=== PATIENT | male | born 1970 | race Two or more races ===

== ENCOUNTER 2017-10-22 00:14 | Emergency (ER) | payer OTHER ==
[~2017-10-22] VITALS: Ht 175.3 cm; Wt 86.2 kg
[2017-10-22] MEDS ORDERED: Lidocaine 1% Plain 30 ml INJ ONE (00:30)
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
[2017-10-22 02:44] VITALS: BP 160/82
--- NOTE | 2017-10-22 08:41 | Diagnostic Imaging Report ---
Indication: Reason For Exam: PAIN Technique: Continuous helical CT scanning of the head was performed without intravenous contrast material. Axial and coronal 5 mm sections were generated. Radiation dose was minimized using automated exposure control Dose: Total Dose Length Product - DLP 1382.[address] Dose Index - CTDIvol(s) 70.38 mGy. Comparison: none Findings: The ventricular system is normal in size and configuration. There is no shift of midline structures. No abnormal extra-axial fluid collections are noted. There is no evidence of intracerebral bleeding. No other abnormal high or low density areas are noted within the brain. There is some midline nasal and supranasal soft tissue swelling. There is possibly a fracture of the tip of the nasal bone, and completely included. There is deformity of the medial right orbital wall, presumably chronic, may be developmental or from old trauma. There is bilateral ethmoid and maxillary sinus mucosal disease Impression: Negative for acute intracranial bleed or mass effect Evidence of nasal bony and soft tissue trauma This agrees with the preliminary interpretation provided overnight by [facility]. The CT scanner at [facility] is accredited by the [employer] and the scans are performed using protocols designed to limit radiation exposure to as low as reasonably achievable to attain images of sufficient resolution adequate for diagnostic evaluation.
== END 2017-10-22 02:48 | disposition home or self-care (01) ==
LOC: EDBD 00:14 → EMR 00:18
DX: S01.81XA Laceration without foreign body of other part of head, initial encounter (principal); S09.90XA Unspecified injury of head, initial encounter; F10.10 Alcohol abuse, uncomplicated; Z91.030 Bee allergy status; Y04.2XXA Assault by strike against or bumped into by another person, initial encounter; Y92.512 Supermarket, store or market as the place of occurrence of the external cause
CPT/HCPCS: 12002; 70450; 99284; J2001

== ENCOUNTER 2019-06-06 19:05 | Emergency (ER) | payer SELFPAY ==
[~2019-06-06] VITALS: Ht 177.8 cm; Wt 93.0 kg
[2019-06-06 19:45] VITALS: BP 126/82
[2019-06-06] MEDS ORDERED: Cephalexin 500mg cap ORAL ONE (20:00)
[2019-06-06] MEDS ORDERED: Bactrim-DS 1 tab ORAL ONE (20:00)
[2019-06-06] MEDS ORDERED: Lidocaine 1% 10mg/ml/Epi 0.005mg/ml 30ml vial INJ ONE (20:00)
[2019-06-06] MEDS ORDERED: oxyCODONE HCL/Acetaminophen 5/325mg ORAL ONE (20:00)
[2019-06-06] MEDS ORDERED: BACTRIM DS TAB1 EAC1 ORAL (20:35)
[2019-06-06] MEDS ORDERED: CEPHALEXIN500 M1 ORAL (20:35)
--- NOTE | 2019-06-06 20:36 | Emergency Room Report ---
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 Allergies: Coded Allergies: BEE VENOM PROTEIN (HONEY BEE) (Verified Allergy, Unknown, 10/22/17) Patient History Past Medical History: see triage record Reviewed Nursing Documentation: PMH: Agreed; PSxH: Agreed Nursing Documentation-PMH Past Medical History: No History, Except For Review of Systems All Other Systems: negative except mentioned in HPI Physical Exam Vital Signs Date Time Temp Pulse Resp B/P (MAP) Pulse Ox O2 Delivery O2 Flow Rate FiO2 06/06/19 19:14 98.4 84 18 126/82 (97) 97 Room Air Sp02 EP Interpretation: reviewed, normal General Appearance: well appearing, no apparent distress, alert Head: normocephalic, atraumatic Eyes: bilateral eye PERRL, bilateral eye EOMI ENT: uvula midline, moist mucus membranes Neck: supple, thyroid normal, supple/symm/no masses Respiratory: no respiratory distress, no retraction, no accessory muscle use Gastrointestinal: no guarding, no rebound Musculoskeletal: normal inspection Neurologic: alert, oriented x3 Psychiatric: mood/affect normal Skin: warm/dry, other - Right armpit: Fluctuance felt 2 x 2 cm right armpit abscess, with surrounding cellulitis Procedures Incision and Drainage Incision and Drainage : Consent: Verbal Site: right axilla Blade Size: 11 I & D Procedure: betadine prep, sterile drapes applied, sterile dressing applied, gauze wick placed Wound Location: axilla Wound's Depth, Shape: superficial Wound Length (cm): 2 Irrigated w/ Saline (ccs): 100 Anesthesia: Lidocaine w/ Epi Volume Anesthetic (ccs): 10 Patient Tolerated: Well Complications: None Medical Decision Making Diagnostic Impression: Primary Impression: Abscess ER Course 48-year-old male presents with right axilla abscess, status post incision and drainage will trial antibiotics, wound check in 72 hours to remove packing Last Vital Signs Date Time Temp Pulse Resp B/P (MAP) Pulse Ox O2 Delivery O2 Flow Rate FiO2 06/06/19 19:14 98.4 84 18 126/82 (77) 97 Room Air Disposition: HOME, SELF-CARE Condition: Stable Scripts Trimethoprim/Sulfamethoxazole 160/800* (BACTRIM DS TABLET*) 1 Each Tablet 1 TAB ORAL Q12H, #20 TAB 0 Refills Prov: Gerhard Reinoso MD 06/06/19 Cephalexin* (KEFLEX*) 500 Mg Tablet 500 MG ORAL EVERY 6 HOURS, #40 CAP Prov: Gerhard Reinoso MD 06/06/19 Referrals: [facility] Patient Instructions: Abscess Additional Instructions: The patient was provided with discharge instructions, notified to follow-up with a primary care doctor and or specialist in the next 24-48 hours, and to return to the ED if they have worsening of their symptoms. Please note that this report is being documented using DRAGON technology. This can lead to erroneous entry secondary to incorrect interpretation by the dictating instrument. PLEASE RETURN 06/09/2019 FOR WOUND CHECK AND PACKING REMOVAL Gerhard Reinoso MD Jun 06, 2019 20:36
[2019-06-06 20:44] VITALS: BP 126/82
== END 2019-06-06 20:45 | disposition home or self-care (01) ==
LOC: EMR 19:40
DX: L02.411 Cutaneous abscess of right axilla (principal)
CPT/HCPCS: 99283

== ENCOUNTER 2019-06-08 13:34 | Emergency (ER) | payer SELFPAY ==
[~2019-06-08] VITALS: Ht 177.8 cm; Wt 93.0 kg
[~2019-06-08 13:34] MED LIST: BACTRIM DS TAB1 EAC1 ORAL; CEPHALEXIN500 M1 ORAL
[2019-06-08 14:08] VITALS: BP 111/82
--- NOTE | 2019-06-08 14:30 | Emergency Room Report ---
History of Present Illness General Chief Complaint: Skin Rash/Abscess Source: Patient Present Illness HPI 48-year-old male who presents to emergency for wound check. Patient states he was in the emergency room for axillary abscess that was drained and a wound packing was placed. Patient was also prescribed antibiotics which she has been taking as prescribed. Patient denies any chills but noted some subjective fevers. He did not take his temperature. Allergies: Coded Allergies: BEE VENOM PROTEIN (HONEY BEE) (Verified Allergy, Unknown, 10/22/17) Patient History Past Surgical History: none Pertinent Family History: none Nursing Documentation-[facility] Past Medical History: No History, Except For Review of Systems Constitutional: Reports: fever; Denies: chills Respiratory: Denies: cough, shortness of breath Cardiovascular: Denies: chest pain, palpitations Gastrointestinal: Denies: abdominal pain, diarrhea Musculoskeletal: Denies: back pain, joint pain Skin: Reports: other - Wound with pus drainage; Denies: rash Neurological: Denies: headache, paresthesia Physical Exam Vital Signs Date Time Temp Pulse Resp B/P (MAP) Pulse Ox O2 Delivery O2 Flow Rate FiO2 06/08/19 14:08 99.0 67 18 111/82 (92) 99 Room Air Sp02 EP Interpretation: reviewed, normal General Appearance: no apparent distress, alert, GCS 15, non-toxic Head: normocephalic, atraumatic ENT: hearing grossly normal, moist mucus membranes Neck: full range of motion, supple/symm/no masses Respiratory: chest non-tender, lungs clear, normal breath sounds, speaking full sentences Cardiovascular #1: regular rate, rhythm, no edema Cardiovascular #2: 2+ radial (R), 2+ radial (L) Skin: warm/dry, other - 5 cm of cellulitis over right superior anterior axilla with two 1 cm incisions and drain noted. Mild tenderness. Minimal drainage of pus with palpation, no loculations noted when probed Medical Decision Making Diagnostic Impression: Primary Impression: Wound check, abscess ER Course 48-year-old male with history of axillary abscess status post 2 days of insisted and drainage with wound packing. Came to emergency room for wound check. Differential includes cellulitis, worsening infection, reaccumulation of abscess , well-healing wound Patient's exam were consistent with well-healing wound given mild surrounding erythema and patient self reported improvement of symptoms. Wound packing removed. Patient tolerated procedure well. Patient still has some surrounding erythema. Patient was recommended to continue clean with light soap and water and to follow-up in 2 days for repeat wound check. Patient is to continue prescribed antibiotics Last Vital Signs Date Time Temp Pulse Resp B/P (MAP) Pulse Ox O2 Delivery O2 Flow Rate FiO2 06/08/19 14:08 99.0 67 18 111/82 (92) 99 Room Air Disposition: HOME, SELF-CARE Condition: Stable Patient Instructions: Abscess, Incision and Drainage, Care After Additional Instructions: Return to emergency room in 2 days for wound check. Continue antibiotics as prescribed. Come immediately to emergency room have any worsening symptoms, fevers, increased drainage from wound. Murphy Irvin M.D. Jun 08, 2019 14:30
--- NOTE | 2019-06-08 14:34 | NUR ---
ED Nurse Note: Pt came in from home due to [place], came in the ER a couple days ago for the same reason. Today came back for check-up. Dr. Sandy in room, took out packing. Pt tolerated well. Redness noted around wound. NO active bleeding. Pain 8/10 at this time. AOx4, vital signs stable. Will cont to monitor.
[2019-06-08 15:09] VITALS: BP 111/82
--- NOTE | 2019-06-08 15:10 | NUR ---
ER DISCHARGE NOTE: Patient is cleared to be discharged per DIVINA HOANG , pt is aox4, on room air, with stable vital signs. pt was given dc instructions, pt was able to verbalize understanding, pt id band removed without complications. pt is able to ambulate with steady gait. pt took all belongings.
--- NOTE | 2019-06-08 15:10 | NUR ---
ED Nurse Note: right under armpit picture taken.
== END 2019-06-08 15:08 | disposition home or self-care (01) ==
LOC: EMR 15:04
DX: Z48.00 Encounter for change or removal of nonsurgical wound dressing (principal); Z91.030 Bee allergy status
CPT/HCPCS: 99281

== ENCOUNTER 2019-06-10 16:13 | Emergency (ER) | payer SELFPAY ==
[~2019-06-10] VITALS: Ht 177.8 cm; Wt 92.1 kg
[2019-06-10 16:24] VITALS: BP 111/77
--- NOTE | 2019-06-10 16:37 | Emergency Room Report ---
History of Present Illness General Chief Complaint: Wound Recheck/Suture Removal Source: Medical Record Present Illness HPI 48-year-old male with no significant past medical history here requesting wound check on his drained abscess from right axilla. Patient is compliant with taking antibiotic, denies any fever and chills, pus drainage. No bandage or packing is noted on the affected side. No signs of infection noted. Patient complains of pruritus at the site of the Tegaderm and reports that he took it off. Denies any anaphylaxis, fever chills, chest pain, shortness of breath, palpitation, no other associated symptoms. Denies any new injury. Allergies: Coded Allergies: BEE VENOM PROTEIN (HONEY BEE) (Verified Allergy, Unknown, 10/22/17) Patient History Past Medical History: see triage record Past Surgical History: unable to obtain Pertinent Family History: none Immunizations: UTD Reviewed Nursing Documentation: PMH: Agreed; PSxH: Agreed Nursing Documentation-PMH Past Medical History: No History, Except For Review of Systems All Other Systems: negative except mentioned in HPI Physical Exam Vital Signs Date Time Temp Pulse Resp B/P (MAP) Pulse Ox O2 Delivery O2 Flow Rate FiO2 06/10/19 16:24 97.5 74 18 111/77 97 Room Air Sp02 EP Interpretation: reviewed, normal General Appearance: no apparent distress, alert, GCS 15, non-toxic Head: normocephalic, atraumatic Eyes: bilateral eye normal inspection, bilateral eye PERRL ENT: hearing grossly normal, normal pharynx, no angioedema, normal voice Neck: full range of motion, supple, supple/symm/no masses Respiratory: chest non-tender, lungs clear, normal breath sounds, no rhonchi, no wheezing, speaking full sentences Cardiovascular #1: regular rate, rhythm, no edema, no murmur Gastrointestinal: normal bowel sounds, non tender, soft, non-distended, no guarding, no rebound Rectal: deferred Musculoskeletal: back normal, decreased range of motion, normal range of motion , digits/nails normal Neurologic: alert, motor strength/tone normal, oriented x3, sensory intact, responsive, speech normal Psychiatric: judgement/insight normal, memory normal, mood/affect normal, no suicidal/homicidal ideation Skin: rash - contact dermatitis right axilla, other - drained healing abscess right axilla. Lymphatic: no adenopathy Medical Decision Making CONSTANZA Attestation All diagnoses and treatment plans were reviewed and discussed with my supervising physician Dr. Vigil Diagnostic Impression: Primary Impression: Encounter for wound re-check Additional Impression: Contact dermatitis ER Course 48-year-old male with no significant past medical history here requesting wound check on his drained abscess from right axilla. Patient is compliant with taking antibiotic, denies any fever and chills, pus drainage. No bandage or packing is noted on the affected side. No signs of infection noted. Patient complains of pruritus at the site of the Tegaderm and reports that he took it off. Denies any anaphylaxis, fever chills, chest pain, shortness of breath, palpitation, no other associated symptoms. Denies any new injury. Ddx considered but are not limited to: Eczema, scabies, lice, Vital signs: are WNL, pt. is afebrile H&PE are most consistent with: Contact dermatitis, encounter for wound recheck ORDERS: Triamcinolone ED INTERVENTIONS: Wound clean and dressed DISCHARGE: At this time pt. is stable for d/c to home. Will provide printed patient care instructions, and any necessary prescriptions. Care plan and follow up instructions have been discussed with the patient prior to discharge. Follow-up with your primary care provider, if worsening symptoms return to the emergency room Last Vital Signs Date Time Temp Pulse Resp B/P (MAP) Pulse Ox O2 Delivery O2 Flow Rate FiO2 06/10/19 16:24 97.5 74 18 111/77 (88) 97 Room Air Disposition: HOME, SELF-CARE Condition: Stable Scripts Triamcinolone Acetonide (Triamcinolone Acetonide 0.5% Cream*) 15 Gm Cream..g. 2 GM TP BID, #15 GM Prov: Nathan Vasquez 06/10/19 Patient Instructions: Contact Dermatitis, [id number], Wound Check Nathan Vasquez Jun 10, 2019 16:37
[2019-06-10] MEDS ORDERED: TRIAMCINOLONE A15 G1 TP (16:38)
[2019-06-10 17:17] VITALS: BP 121/70
== END 2019-06-10 17:30 | disposition home or self-care (01) ==
LOC: EMR 16:50
DX: L02.411 Cutaneous abscess of right axilla (principal); L25.9 Unspecified contact dermatitis, unspecified cause
CPT/HCPCS: 99282

== ENCOUNTER 2019-09-12 19:26 | Emergency (ER) | payer MEDICAID, OTHER ==
[~2019-09-12] VITALS: Ht 177.8 cm; Wt 93.0 kg
[~2019-09-12 19:26] MED LIST changes: +TRIAMCINOLONE A15 G1 TP
--- NOTE | 2019-09-12 19:45 | NUR ---
ER Nurse Note: Pt walked in c/o redness, pain on bilateral axillary. Pt stated unk cause of rash, stated 6/10 burning and itchiness pain. Pt also stated there are bumps on bilateral axillary that stated 2/20
[2019-09-12 19:50] VITALS: BP 125/77
[2019-09-12] MEDS ORDERED: NYSTATIN15 G2 TP (19:59)
[2019-09-12 20:00] VITALS: BP 125/77
--- NOTE | 2019-09-12 20:00 | Emergency Room Report ---
History of Present Illness General Chief Complaint: Skin Rash/Abscess Source: Patient Present Illness HPI Patient presents with complaints of discomfort to both axilla Patient reports that he feels some increased itching and irritation also feels masses and swelling in the axilla Denies any fevers or chills denies any chest pain Denies any vomiting or diarrhea Patient reports that he has had multiple flareups in this area in the past Allergies: Coded Allergies: BEE VENOM PROTEIN (HONEY BEE) (Verified Allergy, Unknown, 10/22/17) Patient History Past Medical History: see triage record Reviewed Nursing Documentation: PMH: Agreed; PSxH: Agreed Nursing Documentation-PMH Past Medical History: No History, Except For Review of Systems All Other Systems: negative except mentioned in HPI Physical Exam Vital Signs Date Time Temp Pulse Resp B/P (MAP) Pulse Ox O2 Delivery O2 Flow Rate FiO2 09/12/19 19:42 98.1 75 20 125/77 (93) 99 Room Air Sp02 EP Interpretation: reviewed, normal General Appearance: well appearing, no apparent distress Head: normocephalic, atraumatic Eyes: bilateral eye PERRL, bilateral eye EOMI ENT: hearing grossly normal, normal pharynx, TMs + canals normal, uvula midline Neck: supple Respiratory: lungs clear, no respiratory distress, no retraction Cardiovascular #1: regular rate, rhythm Gastrointestinal: non tender, soft Genitourinary: no CVA tenderness Musculoskeletal: normal inspection Neurologic: alert, oriented x3 Psychiatric: normal inspection Skin: other - Evidence of chronic superlative hidradenitis bilateral axilla. No obvious erythema or fluctuance at the site. There is mild irritation from itching peripherally to this Lymphatic: no adenopathy Medical Decision Making Diagnostic Impression: Primary Impression: hydradenitis ER Course Patient's exam is consistent with chronic separative hidradenitis There are no active signs of abscess or infectious process at this time Patient appears to have some irritation in the periphery and is provided powder medication for this It was discussed the requirement for close outpatient follow-up specialty referral Last Vital Signs Date Time Temp Pulse Resp B/P (MAP) Pulse Ox O2 Delivery O2 Flow Rate FiO2 09/12/19 19:42 98.1 75 20 125/77 (93) 99 Room Air Status: unchanged Disposition: HOME, SELF-CARE Condition: Stable Scripts Nystatin (NYSTATIN) 15 Gm Powder 1 GM TP BID for 7 Days, GM Prov: Javan Figueroa DO 09/12/19 Referrals: Cristina Gotti MD Patient Instructions: Rash, [id number] Additional Instructions: you have a condition called superative hydradenitis. This is a chronic condition that affects your axilla. Please follow-up with your primary physician for further specialty referral Javan Figueroa DO Sep 12, 2019 20:00
--- NOTE | 2019-09-12 20:00 | NUR ---
ED Nurse Note: All orders completed per ER MD orders. Pt cleared by health care Provider for discharge. DC instructions/prescription was given and explained to pt and verbalized understanding of teachings. Instructed pt to follow up with primary care physcian within one week. All medical deviecs such as ID band removed. Pt is AAO x4, ambulatory and left with all personal belongings.
== END 2019-09-12 20:00 | disposition home or self-care (01) ==
LOC: EMR 19:28
DX: L73.2 Hidradenitis suppurativa (principal); Z91.030 Bee allergy status
CPT/HCPCS: 99282

== ENCOUNTER 2020-01-16 20:48 | Emergency (ER) | payer OTHER ==
[~2020-01-16] VITALS: Ht 175.3 cm; Wt 95.3 kg
[~2020-01-16 20:48] MED LIST changes: +NYSTATIN15 G2 TP
[2020-01-16 21:00] VITALS: BP 121/86
--- NOTE | 2020-01-16 21:00 | NUR ---
ED Nurse Note: Patient walked into the ED with c/o SOB and chest pain since wednesday morning. Pain was described as pressure and of 8/10. Patient is AAOx4 and ambulatory. Denies and SOB/. Placed on monitor bed
[2020-01-16] MEDS ORDERED: Ketorolac 30mg Inj IV ONE (21:15)
--- NOTE | 2020-01-16 21:43 | Emergency Room Report ---
History of Present Illness General Chief Complaint: Chest Pain Source: Patient Present Illness HPI Patient presents with chest pain. They pain started at rest on Wednesday. It is been fairly constant and not increasing with exertion. He has been out and about with people. He is concerned about the possibility of diane COVID- 19. He denies fevers or chills, dyspnea, dyspnea on exertion, productive cough , sore throat, nausea, vomiting, diarrhea. The patient denies edema or calf pain. He has never been evaluated for chest pain in the past. He does describe it as someone sitting on his chest. He rates the pain 8/10. It is been constant throughout this time period. He is anxious about the possibility of COVID-19. Risk factors for cardiac disease: No family history, diabetes, hypertension, high cholesterol or smoking. The patient does drink alcohol and was drinking prior to the onset of the chest pain. No palpitations, diarrhea, dysuria, abdominal pain, rashes, visual changes, dizziness, headache. The patient does not exhibit COVID-19 symptoms. He has been exposed to other people however. 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 Reviewed Nursing Documentation: PMH: Agreed; PSxH: Agreed Nursing Documentation-PM Past Medical History: No Stated History Review of Systems All Other Systems: negative except mentioned in HPI Physical Exam Vital Signs Date Time Temp Pulse Resp B/P (MAP) Pulse Ox O2 Delivery O2 Flow Rate FiO2 01/16/20 20:52 97.9 82 18 121/86 (98) 97 Room Air Sp02 EP Interpretation: reviewed, normal General Appearance: well appearing, no apparent distress, GCS 15 Head: normocephalic Eyes: bilateral eye normal inspection, bilateral eye PERRL, bilateral eye EOMI ENT: moist mucus membranes Neck: full range of motion, supple Respiratory: chest non-tender, lungs clear, normal breath sounds Cardiovascular #1: regular rate, rhythm, no edema Cardiovascular #2: 2+ radial (R) Gastrointestinal: normal inspection, normal bowel sounds, non tender, no mass, non-distended Genitourinary: no CVA tenderness Musculoskeletal: back normal, normal range of motion, no calf tenderness, gait/ station normal Neurologic: alert, oriented x3, normal inspection Psychiatric: mood/affect normal - Slightly anxious and depressed affect Skin: no rash, warm/dry Medical Decision Making Diagnostic Impression: Primary Impression: Chest pain Qualified Codes: R07.9 - Chest pain, unspecified ER Course The patient presents with several days of chest pain with that atypical history aside from saying and it feels like "someone is sitting on his chest". Differential includes unstable angina, acute myocardial infarction, anxiety, GERD, chest wall pain, COVID-19 amongst others. Evaluation with EKG, chest x- ray and labs. At the onset risk factors are nil. However the patient needs to be placed on a parachute inspector. The patient will be treated with aspirin, Pepcid and Toradol. EKG normal. Chest x-ray clear. Labs remarkable for negative troponin. Heart score 0. Patient's pain resolved with treatment. Discussed low risk and patient wants to go home. Discussed the need for follow- up with his own doctor. Also discussed possible etiologies of the chest pain. Also suggested that the patient have outpatient COVID-19 testing for his own reassurance. No medical emergency at this time, low cardiac risk. Patient stable for outpatient observation and treatment. Laboratory Tests Test 01/16/20 21:26 White Blood Count 8.6 K/UL (4.8-10.8) Red Blood Count 4.96 M/UL (4.70-6.10) Hemoglobin 15.5 G/DL (14.2-18.0) Hematocrit 46.0 % (42.0-52.0) Mean Corpuscular Volume 93 FL (80-99) Mean Corpuscular Hemoglobin 31.3 PG (27.0-31.0) H Mean Corpuscular Hemoglobin Concent 33.7 G/DL (32.0-36.0) Red Cell Distribution Width 11.6 % (11.6-14.8) Platelet Count 292 K/UL (150-450) Mean Platelet Volume 6.8 FL (6.5-10.1) Neutrophils (%) (Auto) 59.2 % (45.0-75.0) Lymphocytes (%) (Auto) 26.6 % (20.0-45.0) Monocytes (%) (Auto) 9.6 % (1.0-10.0) Eosinophils (%) (Auto) 3.3 % (0.0-3.0) H Basophils (%) (Auto) 1.3 % (0.0-2.0) Prothrombin Time 11.7 SEC (9.30-11.50) H Prothrombin Time INR 1.1 (0.9-1.1) Activated Partial Thromboplast Time 30 SEC (23-33) Sodium Level 144 MMOL/L (136-145) Potassium Level 3.8 MMOL/L (3.5-5.1) Chloride Level 105 MMOL/L (98-107) Carbon Dioxide Level 29 MMOL/L (21-32) Anion Gap 10 mmol/L (5-15) Blood Urea Nitrogen 12 mg/dL (7-18) Creatinine 1.0 MG/DL (0.55-1.30) Estimated Glomerular Filtration Rate > 60 mL/min (>60) Glucose Level 100 MG/DL (74-106) Calcium Level 8.8 MG/DL (8.5-10.1) Total Bilirubin 0.3 MG/DL (0.2-1.0) Aspartate Amino Transferase (AST) 25 U/L (15-37) Alanine Aminotransferase (ALT) 55 U/L (12-78) Alkaline Phosphatase 103 U/L (46-116) Total Creatine Kinase 105 U/L (26-308) Troponin I 0.000 ng/mL (0.000-0.056) Pro-B-Type Natriuretic Peptide 29 pg/mL (0-125) Total Protein 7.7 G/DL (6.4-8.2) Albumin 4.4 G/DL (3.4-5.0) Globulin 3.3 g/dL Albumin/Globulin Ratio 1.3 (1.0-2.7) EKG Diagnostic Results Rate: normal Rhythm: NSR ST Segments: no acute changes Rhythm Strip Diag. Results EP Interpretation: yes Rhythm: NSR, no PVC's, no ectopy Chest X-Ray Diagnostic Results Chest X-Ray Diagnostic Results : Chest X-Ray Ordered: Yes # of Views/Limited/Complete: 1 View Indication: Chest Pain Interpretation: no consolidation, no effusion, no pneumothorax Impression: No acute disease Electronically Signed by: Electronically signed by Kt Vigil MD Last Vital Signs Date Time Temp Pulse Resp B/P (MAP) Pulse Ox O2 Delivery O2 Flow Rate FiO2 01/16/20 23:18 98.0 18 124/76 98 Room Air 01/16/20 21:00 82 Status: improved Disposition: HOME, SELF-CARE Condition: Improved Scripts Ibuprofen* (MOTRIN*) 600 Mg Tablet 600 MG ORAL Q8H PRN for FOR PAIN, #20 TAB 0 Refills Prov: Kt Vigil MD 01/16/20 Famotidine* (Pepcid 20mg tablet*) 20 Mg Tablet 20 MG ORAL DAILY, #30 TAB 0 Refills Prov: Kt Vigil MD 01/16/20 Referrals: NON PHYSICIAN (PCP) Kt Vigil MD Jan 16, 2020 21:43
[2020-01-16 21:46] LABS: ANION GAP 10 mmol/L (5-15); BLOOD UREA NITROGEN 12 mg/dL (7-18); CALCIUM 8.8 MG/DL (8.5-10.1); CARBON DIOXIDE 29 MMOL/L (21-32); CHLORIDE 105 MMOL/L (98-107); POTASSIUM 3.8 MMOL/L (3.5-5.1); SODIUM 144 MMOL/L (136-145)
[2020-01-16 21:47] LABS: INR 1.1 (0.9-1.1)
[2020-01-16 21:54] LABS: BASOPHILS % (AUTO) 1.3 % (0.0-2.0); EOSINOPHILS % (AUTO) 3.3 % (0.0-3.0); HEMOGLOBIN 15.5 G/DL (14.2-18.0); LYMPHOCYTES % (AUTO) 26.6 % (20.0-45.0); MEAN CORPUSCULAR VOLUME 93 FL (80-99); MONOCYTES % (AUTO) 9.6 % (1.0-10.0); NEUTROPHILS % (AUTO) 59.2 % (45.0-75.0); PLATELET COUNT 292 K/UL (150-450); RED BLOOD COUNT 4.96 M/UL (4.70-6.10); RED CELL DISTRIBUTION WIDTH 11.6 % (11.6-14.8); WHITE BLOOD COUNT 8.6 K/UL (4.8-10.8)
[2020-01-16 22:01] LABS: ALANINE AMINOTRANSFERASE 55 U/L (12-78); ALBUMIN 4.4 G/DL (3.4-5.0); ALBUMIN/GLOBULIN RATIO 1.3 (1.0-2.7); ALKALINE PHOSPHATASE 103 U/L (46-116); ASPARTATE AMINO TRANSFERASE 25 U/L (15-37); BILIRUBIN,TOTAL 0.3 MG/DL (0.2-1.0); CREATINE KINASE 105 U/L (26-308)
[2020-01-16] MEDS ORDERED: IBUPROFEN600 M1 ORAL (23:16)
[2020-01-16] MEDS ORDERED: FAMOTIDINE20 MG ORAL (23:16)
[2020-01-16 23:18] VITALS: BP 124/76
--- NOTE | 2020-01-17 12:38 | Diagnostic Imaging Report ---
Procedure: XRAY Chest 1v Reason for study: Chest pain Comparison films: None. FINDINGS: A single one view chest is obtained. Vascularity is normal. The lung bhardwaj are clear bilaterally. Cardiac and mediastinal silhouette are within normal limits. CP angles are sharp. The bony thorax appear unremarkable. IMPRESSION: NO ACUTE CARDIOPULMONARY DISEASE.
== END 2020-01-16 23:20 | disposition home or self-care (01) ==
LOC: EMR 21:34 → EDBEDREQ 22:48 → CANBEDREQ 23:00 → EMR 23:20
DX: R07.9 Chest pain, unspecified (principal); Z91.030 Bee allergy status; F12.90 Cannabis use, unspecified, uncomplicated
CPT/HCPCS: 36415; 71045; 80053; 82550; 83880; 84484; 85025; 85610; 85730; 93005; 96374; 96375; 99284; J1885; S0028

== ENCOUNTER 2020-08-06 11:11 | Emergency (ER) | payer OTHER ==
[~2020-08-06] VITALS: Ht 177.8 cm; Wt 104.3 kg
[~2020-08-06 11:11] MED LIST changes: +FAMOTIDINE20 MG ORAL; +IBUPROFEN600 M1 ORAL
--- NOTE | 2020-08-06 11:20 | NUR ---
ED Nurse Note: Pt walked into ED for SOB, bodyaches, chills, fever, nausea and vomiting for 3 days. Pt is alert and orientedx4, ambulatory. He says he has not had COVID test but thinks he has it. He is set up on monitor 98.5 F oral.
[2020-08-06 11:32] VITALS: BP 121/72
--- NOTE | 2020-08-06 11:45 | NUR ---
COVID TEST DONE WAITING FOR RESULTS
[2020-08-06] MEDS ORDERED: Albuterol/Ipratropium 3ml neb HHN ONE (12:30)
--- NOTE | 2020-08-06 12:35 | Emergency Room Report ---
History of Present Illness General Chief Complaint: Dyspnea/Respdistress Source: Patient Present Illness HPI 49-year-old male presents for evaluation. Last 3 days cough, congestion, body aches. Feels short of breath. Denies sick contacts or recent travel. Denies fevers. No other aggravating relieving factors. Denies any other associated symptoms. Allergies: Coded Allergies: BEE VENOM PROTEIN (HONEY BEE) (Verified Allergy, Unknown, 10/22/17) COVID-19 Screening Contact w/high risk pt: No Recent Travel to affected area: No Experienced COVID-19 symptoms?: Yes COVID-19 symptoms experienced: Cough, Runny Nose COVID-19 Testing performed MEMBER SERVICE REPRESENTATIVE: No Patient History Past Medical History: none Past Surgical History: none Pertinent Family History: none Social History: Reports: smoking; Denies: alcohol use, drug use Immunizations: UTD Reviewed Nursing Documentation: PMH: Agreed; PSxH: Agreed Nursing Documentation-PMH Past Medical History: No History, Except For Review of Systems All Other Systems: negative except mentioned in HPI Physical Exam Vital Signs Date Time Temp Pulse Resp B/P (MAP) Pulse Ox O2 Delivery O2 Flow Rate FiO2 08/06/20 11:18 97.7 94 24 116/77 (90) 91 Room Air 08/06/20 11:32 95 Sp02 EP Interpretation: reviewed, normal General Appearance: no apparent distress, alert, GCS 15, non-toxic Head: normocephalic, atraumatic Eyes: bilateral eye normal inspection, bilateral eye PERRL ENT: hearing grossly normal, normal pharynx, no angioedema, normal voice Neck: full range of motion, supple/symm/no masses Respiratory: chest non-tender, crackles, speaking full sentences, wheezing Cardiovascular #1: regular rate, rhythm, no edema Cardiovascular #2: 2+ carotid (R), 2+ carotid (L), 2+ radial (R), 2+ radial (L), 2+ dorsalis pedis (R), 2+ dorsalis pedis (L) Gastrointestinal: normal bowel sounds, non tender, soft, non-distended, no guarding, no rebound Rectal: deferred Genitourinary: normal inspection, no CVA tenderness Musculoskeletal: back normal, normal range of motion, gait/station normal, non- tender Neurologic: alert, motor strength/tone normal, oriented x3, sensory intact, responsive, speech normal Psychiatric: judgement/insight normal, memory normal, mood/affect normal, no suicidal/homicidal ideation Reflexes: 3+ bicep (R), 3+ bicep (L), 3+ tricep (R), 3+ tricep (L), 3+ knee (R), 3+ knee (L) Skin: no rash Lymphatic: no adenopathy Medical Decision Making Diagnostic Impression: Primary Impression: COVID-19 Chest X-Ray Diagnostic Results Chest X-Ray Diagnostic Results : Chest X-Ray Ordered: Yes # of Views/Limited/Complete: 1 View Indication: Shortness of Breath EP Interpretation: Yes Interpretation: no pneumothorax, other - consolidation bilateral lungs Impression: Other - Pneumonia Electronically Signed by: Electronically signed by Lester Woods MD Last Vital Signs Date Time Temp Pulse Resp B/P (MAP) Pulse Ox O2 Delivery O2 Flow Rate FiO2 08/06/20 11:32 97.7 92 34 121/72 95 Room Air 08/06/20 11:32 95 Status: improved Disposition: HOME, SELF-CARE Condition: Stable Referrals: NOT CHOSEN IPA/,REFERRING (PCP) Lester Woods MD Aug 06, 2020 12:35
--- NOTE | 2020-08-06 12:40 | NUR ---
BREATING TREATMENT DONE BY RT TOLERATING WELL
[2020-08-06] MEDS ORDERED: PREDNISONE20 MG ORAL (12:46)
[2020-08-06] MEDS ORDERED: IBUPROFEN600 M1 ORAL (12:46)
[2020-08-06] MEDS ORDERED: ZITHROMAX250 MG ORAL (12:46)
[2020-08-06] MEDS ORDERED: PROMETHAZINE-C118 M1 ORAL (12:46)
[2020-08-06] MEDS ORDERED: ALBUTEROL SULF8.5 G1 INH (12:48)
--- NOTE | 2020-08-06 13:01 | Diagnostic Imaging Report ---
Indication: Off Technique: One view of the chest Comparison: none Findings: Streaky infiltrates are seen in the right perihilar region and right mid-upper lung and at the left lung base. The pleural spaces are clear. The heart size is normal. Impression: Bilateral infiltrates, likely bilateral pneumonia, appearance nonspecific as regards etiology
--- NOTE | 2020-08-06 13:27 | NUR ---
ER DISCHARGE NOTE: Patient is cleared to be discharged per ERMD, pt is aox4, on room air, with stable vital signs. pt was given dc and prescription instructions, pt was able to verbalize understanding, pt id band removed. pt is able to ambulate with steady gait. pt took all belongings. Pt educated on COVID and verbalized understanding. COVID packet provided.
[2020-08-06 13:28] VITALS: BP 117/76
== END 2020-08-06 13:28 | disposition home or self-care (01) ==
LOC: EMR 12:24
DX: U07.1 COVID-19 (principal); J12.82 Pneumonia due to coronavirus disease 2019; F17.200 Nicotine dependence, unspecified, uncomplicated
CPT/HCPCS: 71045; 94640; 99283; U0002; J7620

== ENCOUNTER 2020-08-26 12:00 | Emergency (ER) | payer OTHER ==
[~2020-08-26] VITALS: Ht 177.8 cm; Wt 90.7 kg
[~2020-08-26 12:00] MED LIST changes: +ALBUTEROL SULF8.5 G1 INH; +PREDNISONE20 MG ORAL; +PROMETHAZINE-C118 M1 ORAL; +ZITHROMAX250 MG ORAL
[2020-08-26 12:30] VITALS: BP 113/76
[2020-08-26] MEDS ORDERED: Ketorolac 30mg Inj IV ONE (12:45)
[2020-08-26 12:54] LABS: EOSINOPHILS % (AUTO) 4.3 % (0.0-3.0); HEMATOCRIT 45.1 % (42.0-52.0); HEMOGLOBIN 14.5 G/DL (14.2-18.0); LYMPHOCYTES % (AUTO) 26.4 % (20.0-45.0); MEAN CORPUSCULAR VOLUME 92 FL (80-99); MONOCYTES % (AUTO) 9.8 % (1.0-10.0); NEUTROPHILS % (AUTO) 58.6 % (45.0-75.0); PLATELET COUNT 303 K/UL (150-450); RED BLOOD COUNT 4.92 M/UL (4.70-6.10); RED CELL DISTRIBUTION WIDTH 11.9 % (11.6-14.8); WHITE BLOOD COUNT 7.4 K/UL (4.8-10.8)
[2020-08-26 13:05] LABS: ANION GAP 10 mmol/L (5-15); BLOOD UREA NITROGEN 8 mg/dL (7-18); CALCIUM 9.3 MG/DL (8.5-10.1); CARBON DIOXIDE 25 MMOL/L (21-32); CHLORIDE 109 MMOL/L (98-107); CREATININE 0.7 MG/DL (0.55-1.30); SODIUM 144 MMOL/L (136-145)
[2020-08-26 13:29] LABS: ALANINE AMINOTRANSFERASE 95 U/L (12-78); ALBUMIN 3.5 G/DL (3.4-5.0); ALKALINE PHOSPHATASE 93 U/L (46-116); ASPARTATE AMINO TRANSFERASE 30 U/L (15-37); BILIRUBIN,TOTAL 0.5 MG/DL (0.2-1.0)
[2020-08-26] MEDS ORDERED: LEVOFLOXACIN750 MG ORAL (13:53)
[2020-08-26] MEDS ORDERED: PROMETHAZINE-D118 ML ORAL (13:53)
[2020-08-26 13:59] VITALS: BP 110/78
--- NOTE | 2020-08-26 14:16 | Diagnostic Imaging Report ---
Indication: Chest pain Technique: One view of the chest Comparison: 08/06/2020 Findings: Bilateral infiltrates are demonstrated, increased in the right lower lobe, probably unchanged in the right upper lobe and left lateral lung base. Pleural spaces remain clear. The heart size is upper limits of normal. Impression: Bilateral infiltrates, increased on the right and probably unchanged on the left
--- NOTE | 2020-08-26 15:43 | Emergency Room Report ---
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0) Mean Corpuscular Volume 92 FL (80-99) Mean Corpuscular Hemoglobin 29.4 PG (27.0-31.0) Mean Corpuscular Hemoglobin Concent 32.1 G/DL (32.0-36.0) Red Cell Distribution Width 11.9 % (11.6-14.8) Platelet Count 303 K/UL (150-450) Mean Platelet Volume 7.0 FL (6.5-10.1) Neutrophils (%) (Auto) 58.6 % (45.0-75.0) Lymphocytes (%) (Auto) 26.4 % (20.0-45.0) Monocytes (%) (Auto) 9.8 % (1.0-10.0) Eosinophils (%) (Auto) 4.3 % (0.0-3.0) H Basophils (%) (Auto) 1.0 % (0.0-2.0) Sodium Level 144 MMOL/L (136-145) Potassium Level 4.0 MMOL/L (3.5-5.1) Chloride Level 109 MMOL/L (98-107) H Carbon Dioxide Level 25 MMOL/L (21-32) Anion Gap 10 mmol/L (5-15) Blood Urea Nitrogen 8 mg/dL (7-18) Creatinine 0.7 MG/DL (0.55-1.30) Estimat Glomerular Filtration Rate > 60 mL/min (>60) Glucose Level 87 MG/DL (74-106) Calcium Level 9.3 MG/DL (8.5-10.1) Total Bilirubin 0.5 MG/DL (0.2-1.0) Aspartate Amino Transf (AST/SGOT) 30 U/L (15-37) Alanine Aminotransferase (ALT/SGPT) 95 U/L (12-78) H Alkaline Phosphatase 93 U/L (46-116) Troponin I 0.002 ng/mL (0.000-0.056) Pro-B-Type Natriuretic Peptide 34 pg/mL (0-125) Total Protein 7.0 G/DL (6.4-8.2) Albumin 3.5 G/DL (3.4-5.0) Globulin 3.5 g/dL Albumin/Globulin Ratio 1.0 (1.0-2.7) EKG Diagnostic Results Troponin ordered: Yes Rate: normal Rhythm: NSR ST Segments: no acute changes ASA given to the pt in ED: No Rhythm Strip Diag. Results EP Interpretation: yes Rhythm: NSR, no PVC's, no ectopy Last Vital Signs Date Time Temp Pulse Resp B/P (MAP) Pulse Ox O2 Delivery O2 Flow Rate FiO2 08/26/20 13:59 98.0 96 18 110/78 99 Room Air Status: improved Disposition: HOME, SELF-CARE Condition: Stable Scripts D-Methorphan Hb/Prometh Hcl* (PROMETHAZINE-DM SYRUP*) 118 Ml Syrup 5 ML ORAL Q6H PRN for For Cough, #118 ML 0 Refills Prov: Lester Woods MD 08/26/20 Levofloxacin* (LEVOFLOXACIN*) 750 Mg Tablet 750 MG ORAL DAILY for 5 Days, TAB Prov: Lester Woods MD 08/26/20 Referrals: [facility] Patient Instructions: Nonspecific Chest Pain Lester Woods MD Aug 26, 2020 15:43
--- NOTE | 2020-08-27 16:19 | Cardiology Report ---
APPROVED REPORT EKG Measurement Heart [id number] <Conclusion> Normal sinus rhythm Incomplete right bundle branch block Borderline ECG
== END 2020-08-26 14:00 | disposition home or self-care (01) ==
LOC: EMR 13:05
DX: U07.1 COVID-19 (principal); I45.10 Unspecified right bundle-branch block
CPT/HCPCS: 36415; 71045; 80053; 83880; 84484; 85025; 93005; 96374; 99284; J1885